=== PATIENT | male | born 1940 | race Caucasian/White ===

== ENCOUNTER 2023-08-01 10:41 | Emergency (ER) | payer OTHER, SELFPAY ==
[2023-08-01 10:45] VITALS: BP 154/70
[2023-08-01 10:55] LABS: Glucose - Point of Care 320 mg/dl (70-99)
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
[2023-08-01] MEDS: NSS 500 IV (11:25)
[2023-08-01 11:35] LABS: % Basophils 0.5 % (0-2); % Eosinophils 0.6 % (0-6); % Lymphocytes 13.7 % (20.5-51.1); % Monocytes 6.6 % (1.7-9.3); % Neutrophils 77.6 % (42.2-75.2); Absolute Basophils 0.1 10^3/uL (0-0.2); Absolute Eosinophils 0.1 10^3/uL (0-0.7); Absolute Immature Granulocytes 0.1 10^3/uL (0-0.05); Absolute Lymphocytes 1.5 10^3/uL (1.2-3.4); Absolute Monocytes 0.7 10^3/uL (0.1-0.6); Absolute Neutrophils 8.8 10^3/uL (1.4-6.5); Hematocrit 45.4 % (39.0-52.0); Hemoglobin 15.6 g/dL (13.0-18.0); Mean Corp Hgb Conc. 34.4 g/dL (33.0-37.0); Mean Corpuscular Hgb 31.3 pg (27.0-31.0); Mean Platelet Volume 9.9 fL (7.4-10.4); Nucleated Red Blood Cells % 0 % (-); Platelet Count 224 10^3/uL (130-400); Red Blood Cell Count 4.99 10^6/uL (4.70-6.10); Red Cell Dist. Width 13.2 % (11.5-14.5); White Blood Cell Count 11.3 10^3/uL (4.8-10.8)
[2023-08-01 11:51] LABS: Blood Urea Nitrogen 27 mg/dl (9-20); Calcium 10.7 mg/dl (8.4-10.2); Carbon Dioxide 22 mmol/L (22-30); Chloride 108 mmol/L (98-107); Glucose 242 mg/dl (70-99); Sodium 136 mmol/L (135-145); eGFR 53.84
[2023-08-01 14:08] LABS: Potassium 4.7 mmol/L (3.5-5.1)
--- NOTE | 2023-08-01 14:36 | PHANOTE ---
Med Rec Note- patient confused and has very very old medication list with him, patient has not ecw and i called the person on file but it went straight to voice mail twice.
[2023-08-01 14:46] VITALS: BP 141/73
[2023-08-01 15:40] VITALS: BP 151/79
== END 2023-08-01 15:40 | disposition home or self-care (01) ==
LOC: EMR 10:41
PROVIDERS: Nurse Practitioner; EMERGENCY PHYSICIAN Emergency Medicine; FAMILY PHYSICIAN Internal Medicine; OTHER PHYSICIAN Internal Medicine Endocrinology, Diabetes & Metabolism
DX: E11.65 Type 2 diabetes mellitus with hyperglycemia (principal); V49.40XA Driver injured in collision with unspecified motor vehicles in traffic accident, initial encounter; F03.90 Unspecified dementia, unspecified severity, without behavioral disturbance, psychotic disturbance, mood disturbance, and anxiety; E86.0 Dehydration
CPT/HCPCS: 99285; 96360; 70450; 71260; 72125; 74177; 80048; 82962; 84132; 85025; 87040; 87205; 93005; Q9967

== ENCOUNTER 2023-08-02 18:38 | Emergency (ER) | payer MEDICARE, BC, SELFPAY ==
[2023-08-02 18:42] VITALS: BP 130/75
[2023-08-02 19:08] LABS: % Basophils 0.4 % (0-2); % Eosinophils 0.4 % (0-6); % Immature Granulocytes 0.4 % (0-0.5); % Lymphocytes 16.8 % (20.5-51.1); Absolute Lymphocytes 1.8 10^3/uL (1.2-3.4); Absolute Neutrophils 7.7 10^3/uL (1.4-6.5); Hematocrit 45.5 % (39.0-52.0); Hemoglobin 15.7 g/dL (13.0-18.0); Mean Corp Hgb Conc. 34.5 g/dL (33.0-37.0); Mean Corpuscular Hgb 31.2 pg (27.0-31.0); Mean Corpuscular Volume 90.3 fL (80.0-94.0); Nucleated Red Blood Cells % 0 % (-); Platelet Count 255 10^3/uL (130-400); Red Blood Cell Count 5.04 10^6/uL (4.70-6.10); Red Cell Dist. Width 13.6 % (11.5-14.5); White Blood Cell Count 10.5 10^3/uL (4.8-10.8)
[2023-08-02 19:20] LABS: Lactic Acid 1.8 mmol/L (0.7-2.0)
[2023-08-02 19:23] LABS: ALT (SGPT) 21 U/L (0-50); AST (SGOT) 44 U/L (17-59); Alkaline Phosphatase 132 U/L (38-126); Blood Urea Nitrogen 38 mg/dl (9-20); Calcium 11.2 mg/dl (8.4-10.2); Carbon Dioxide 25 mmol/L (22-30); Chloride 102 mmol/L (98-107); Glucose 253 mg/dl (70-99); Potassium 4.7 mmol/L (3.5-5.1); Sodium 137 mmol/L (135-145); Total Bilirubin 1.1 mg/dl (0.2-1.3); Total Protein 7.8 g/dl (6.3-8.2); eGFR 41.96
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
[2023-08-02 22:38] VITALS: BP 122/69
[2023-08-02 22:45] LABS: Urine Albumin 1+ (Neg - Trace); Urine Bilirubin Negative (Negative); Urine Character Clear (Clear); Urine Color Yellow; Urine Glucose 3+ (Negative); Urine Ketone Negative (Negative); Urine Leukocyte Trace (Negative); Urine Nitrite Negative (Negative); Urine Occult Blood Trace (Negative); Urine Specific Gravity 1.015 (<1.030); Urine Urobilinogen Negative (Neg - 1+)
[2023-08-02 22:53] LABS: Urine Squamous Cell 0-2 /LPF (Few)
[2023-08-02 22:59] LABS: Urine Bacteria Moderate (Negative); Urine White Cell 30-40 /HPF (0-5)
[2023-08-02] MEDS: BACTRIM DS 800 MG/160 MG 1 TABLET PO (23:18)
== END 2023-08-02 23:26 | disposition home or self-care (01) ==
LOC: EMR 18:38
PROVIDERS: Emergency Medicine; EMERGENCY PHYSICIAN Student in an Organized Health Care Education/Training Program; FAMILY PHYSICIAN Internal Medicine
DX: N39.0 Urinary tract infection, site not specified (principal)
CPT/HCPCS: 99283; 80053; 81003; 81015; 83605; 85025; 87040; 87086

== ENCOUNTER 2024-09-16 10:13 | Inpatient (IN) | payer MEDICARE, BC, SELFPAY ==
[2024-09-14 20:49] VITALS: BP 153/93; BMI 28.2
[2024-09-14 20:51] VITALS: BP 153/93
[2024-09-14] MEDS: TYLENOL 1000 MG PO (21:47)
[2024-09-14 21:49] VITALS: BP 119/107
--- NOTE | 2024-09-14 21:49 | ED.GENMED ---
History of Present Illness
General
Chief Complaint: Fever
Time Seen by Provider: 09/14/24 21:43
History of Present Illness
History of Present Illness:
Patient is a 84-year-old male with history of dementia, diabetes, hyperlipidemia presenting to the emergency department with fever and weakness. Patient's noticed that patient was unable to get out of bed by himself which she is usually able
to do. Otherwise patient does have a history of dementia so history is limited. Per medics the call was for weakness and a fever. He is at his mental status baseline. His Accu-Chek was normal. They did start fluids. They did notice a foul
smell to his urine.
Past History
Past History
ED Past Medical History: Other (Dementia)
Phy Exam
Physical Exam
Physical Exam:
GENERAL: in no acute distress,
HEENT: normocephalic, extraocular movements intact, moist oral mucosa
NECK: normal inspection
RESPIRATORY: no respiratory distress, clear to auscultation bilaterally
CARDIOVASCULAR: regular rate and rhythm
ABDOMEN/: soft, non-distended, non-tender to palpation, no rebound or guarding
EXTREMITIES: non-tender, no edema/swelling
NEUROLOGIC: awake and alert, oriented x 1, moves all extremities, no gross motor or sensory deficit
SKIN: warm
Sepsis
Sepsis Screening
Sepsis Assessment: Sepsis Ruled Out
Sepsis Screen
Sepsis Screen: Sepsis Ruled Out
Date: 09/14/24
Time: 23:04
Course
Orders/Labs/Results
Orders:
Orders
09/14/24 20:47
EKG [Electrocardiogram (*1)] Urgent
Reason for Study: Fatigue / Weakness
EKG- Treatment ONCE
09/14/24 20:58
Cardiac Monitoring- Treatment ONCE
09/14/24 21:34
Complete Blood Count/With Diff Urgent
Comprehensive Metabolic Panel Urgent
Lactic Acid Q4H
Comment: ON ICE, CANCEL 2ND ORDER IF FIRST LACTIC ACID LEVEL <2
Blood Culture Q20M
ANTOINE Source: Blood/Venous
Specimen Description:
Comment: Urgent from separate sites. If patient screens positive for possible sepsis
Blood Culture Q20M
ANTOINE Source: Blood/Venous
Specimen Description:
Comment: Urgent from separate sites. If patient screens positive for possible sepsis
09/14/24 21:35
CR Chest - 2 Views Urgent
Comment:
Reason For Exam: fever
09/14/24 21:37
Urinalysis Reflex To Culture Urgent
Date Specimen was Collected: 09/14/24
Time Specimen was Collected: 21:36
Urine Microscopic Reflex Cult Urgent
09/14/24 21:43
Acetaminophen [Tylenol] 1,000 mg PO NOW STA
09/14/24 21:50
0.9% Sodium Chloride 1000 ml [Nss] 1,000 ml IV BOLUS
09/14/24 22:18
COVID-19 Antigen Urgent
Source: Nasal Swab
Influenza A+B Rapid Molecular Urgent
ANTOINE Source: Nasal Swab
Specimen Description:
09/14/24 22:21
CT Abd/pelvis W Iv Cont Urgent
Comment:
Reason For Exam: hematuria, febrile
Abnormal Lab Results
09/14/24 09/14/24 09/14/24
21:34 21:37 22:18
MCH 31.3 H pg
(27.0-31.0)
Absolute Neuts (auto) 7.5 H 10^3/uL
(1.4-6.5)
Absolute Lymphs (auto) 0.7 L 10^3/uL
(1.2-3.4)
Absolute Monos (auto) 1.0 H 10^3/uL
(0.1-0.6)
Neutrophils % 81.0 H %
(42.2-75.2)
Lymphocytes % 7.4 L %
(20.5-51.1)
Monocytes % 10.8 H %
(1.7-9.3)
BUN 26 H mg/dl
(9-20)
Glucose 226 H mg/dl
(70-99)
Calcium 11.1 H mg/dl
(8.4-10.2)
Urine Ketones 2+ A
(Negative)
Ur Occult Blood Reflex 3+ A
(Negative)
Urine RBC 3-6 A /HPF
(0-2)
Urine Glucose 4+ A
(Negative)
Urine Albumin (Reflex) 2+ A
(Neg - Trace)
SARS-CoV-2 Antigen Positive A
(Negative)
09/14/24 21:34
09/14/24 21:34
Vital Signs
Initial and Last Documented VS:
Initial Vital Signs
Temp Pulse Resp BP Pulse Ox
101.2 F H 80 21 153/93 98
09/14/24 20:49 09/14/24 20:49 09/14/24 20:49 09/14/24 20:49 09/14/24 20:49
Last Documented Vital Signs
Temp Pulse Resp BP Pulse Ox
101.2 F H 76 16 135/65 98
09/14/24 20:49 09/14/24 22:15 09/14/24 22:15 09/14/24 22:00 09/14/24 21:49
MDM/Problems Addressed
Differential Diagnosis Includes:
Patient is a 84-year-old male with history of dementia, hypertension, diabetes presenting to the emergency department with fever and generalized weakness as he was unable to get out of bed by himself. On arrival patient is febrile here. Exam is
otherwise reassuring. He is at his mental status baseline. Concern for UTI versus viral illness. Will check blood work EKG respiratory swabs urine sample and obtain blood cultures. Will give fluids. Patient will need admission
*Critical Care Note
Total Time (30-74mins, 75-104mins- exclusive of procedures): Not Applicable
Update Note
Update Note:
Urine with hematuria but no signs of infection. Will obtain CT scan for for kidney stone or intra-abdominal pathology since history is limited.
Chest x-ray per my interpretation with no obvious opacity. COVID is positive. This could explain the fever. However given patient's weakness and that he is from home patient will need admission for PT eval. Discussed with hospitalist who
accepted patient to their service CT scan read is pending at the time of admission.
ED Attending Note
-
Portions of this chart may have been created with voice recognition software.� Occasional wrong word or��sound alike� substitutions may have occurred due to the inherent limitations of voice recognition software.
Discharge Plan
Departure
Patient Disposition: Admit
Date of Disposition: 09/14/24
Time of Disposition: 22:59
Presentation/result/management discussed w/ accepting MD/DO: Hospitalist
Discharge Problem:
COVID-19
Prescriptions:
No Action
atorvastatin [Lipitor] 80 mg Tablet
80 mg PO HS
insulin asp prt-insulin aspart [Novolog Mix 70-30FlexPen U-100] 100 unit/mL (70-30) Insulin Pen
26 unit SC DAILY
Rx Instructions:
before breakfast
Ozempic 1 mg/dose (4 mg/3 mL) Pen Injector
1 mg SC MO
Theragen Tablet
1 tab PO DAILY
Jardiance 25 mg Tablet
25 mg PO DAILY
cyanocobalamin (vitamin B-12) [Vitamin B-12] 1,000 mcg Tablet
1,000 mcg PO DAILY
insulin aspart U-100 [Novolog FlexPen U-100 Insulin] 100 unit/mL (3 mL) Insulin Pen
0 sliding scale dose SC BID@1200,1800
Rx Instructions:
lunch/dinner
insulin glargine [Lantus Solostar U-100 Insulin] 100 unit/mL (3 mL) insulin pen
26 unit SC HS
memantine 10 mg Tablet
10 mg PO BID
Referrals:
Babatunde Martinez MD [Family Provider] -
Interventions
Interventions:
*Risk Screen - Suicide Last Done: 09/14/24 20:49
*General Assessment Last Done: 09/14/24 20:49
*Neglect/Abuse Screening Last Done: 09/14/24 20:49
*ED COVID-19 Vaccine History Last Done: 09/14/24 20:49
Discharge Date and Time
Print Language: PASHTO
[2024-09-14 21:54] LABS: % Basophils 0.3 % (0-2); % Eosinophils 0.1 % (0-6); % Immature Granulocytes 0.4 % (0-0.5); % Lymphocytes 7.4 % (20.5-51.1); % Monocytes 10.8 % (1.7-9.3); Absolute Lymphocytes 0.7 10^3/uL (1.2-3.4); Absolute Neutrophils 7.5 10^3/uL (1.4-6.5); Hematocrit 48.2 % (39.0-52.0); Hemoglobin 16.3 g/dL (13.0-18.0); Mean Corp Hgb Conc. 33.8 g/dL (33.0-37.0); Mean Corpuscular Hgb 31.3 pg (27.0-31.0); Mean Corpuscular Volume 92.5 fL (80.0-94.0); Mean Platelet Volume 10.4 fL (7.4-10.4); Nucleated Red Blood Cells % 0 % (-); Platelet Count 173 10^3/uL (130-400); Red Blood Cell Count 5.21 10^6/uL (4.70-6.10); Red Cell Dist. Width 14.2 % (11.5-14.5); White Blood Cell Count 9.2 10^3/uL (4.8-10.8)
[2024-09-14 21:55] LABS: Urine Albumin 2+ (Neg - Trace); Urine Bilirubin Negative (Negative); Urine Character Clear (Clear); Urine Color Yellow; Urine Glucose 4+ (Negative); Urine Ketone 2+ (Negative); Urine Leukocyte Negative (Negative); Urine Nitrite Negative (Negative); Urine Occult Blood 3+ (Negative); Urine Urobilinogen Negative (Neg - 1+)
[2024-09-14 22:00] VITALS: BP 135/65
[2024-09-14 22:05] LABS: Lactic Acid 1.7 mmol/L (0.7-2.0)
[2024-09-14 22:06] LABS: ALT (SGPT) 19 U/L (0-50); AST (SGOT) 27 U/L (17-59); Alkaline Phosphatase 123 U/L (38-126); Blood Urea Nitrogen 26 mg/dl (9-20); Calcium 11.1 mg/dl (8.4-10.2); Carbon Dioxide 25 mmol/L (22-30); Chloride 104 mmol/L (98-107); Estimated Creatinine Clearance 44 ml/min; Glucose 226 mg/dl (70-99); Potassium 4.5 mmol/L (3.5-5.1); Sodium 139 mmol/L (135-145); Total Protein 7.1 g/dl (6.3-8.2)
[2024-09-14] MEDS: NSS 1000 IV (22:19)
[2024-09-14 22:56] LABS: COVID-19 Antigen Positive (Negative)
[2024-09-14 23:19] VITALS: BP 104/60
[2024-09-15] VITALS (10 sets, daily range): BP systolic 108–168; BP diastolic 45–77
--- NOTE | 2024-09-15 00:47 | HPS.HSE ---
Family Physician
-
Family Physician: Babatunde Martinez
Chief Complaint
-
Weakness
History of Present Illness
Patient is an 84y M with PMH significant for dementia, hypertension and previous renal cancer s/p L nephrectomy who presents to ED for evaluation of weakness. History obtained from significant other given baseline dementia. Patient was very
weak this AM - which is not unusual. He was unable to get OOB and ended up sliding onto the floor. No significant injury or trauma. S.O. was unable to get him up and called 911. EMS noted patient to be febrile and brought him to the ED for
evaluation.
S.O. reports no recent cough, fevers / chills, N/V/D or other specific complaints. She does report that she herself has had some chest congestion / cold symptoms and several of her co-workers have been ill recently.
Patient tests positive for COVID in the ED.
He had the initial 2 vaccinations v SARS-CoV-2 but no boosters since that time.
Medical History
Past Medical History
Past Medical History: Reports Other
Additional Past Medical History:
Renal Cell Carcinoma s/p L Nephrectomy ([facility])
Hypertension
DM-II
Senile Dementia
Past Surgical History: Reports Other
Additional Past Surgical History:
Left Nephrectomy
Social History
Tobacco: Former Smoker
Alcohol: None
Drug: None
Personal: Partner
Family History
Family History: Not pertinent
Allergies / Home Medications
Allergies reflects when Allergies were last updated in [employer].
Home Medications with original date entered in [employer]
Allergy/Medication List:
Allergies
Allergy/AdvReac Type Severity Reaction Status Date / Time
No Known Allergies Allergy Verified 09/14/24 20:48
Home Medications
atorvastatin 80 mg tablet (Lipitor) 80 mg PO HS 08/01/23
empagliflozin 25 mg tablet (Jardiance) 25 mg PO DAILY 08/01/23
insulin aspar prot-insulin aspart 100 unit/mL (70-30) subcutaneous pen (Novolog Mix 70-30FlexPen U-100) 26 unit SC DAILY 08/01/23
semaglutide 1 mg/dose (4 mg/3 mL) subcutaneous pen injector (Ozempic) 1 mg SC MO 08/01/23
therapeutic multivitamin 1 tab PO DAILY 08/01/23
cyanocobalamin (vitamin B-12) 1,000 mcg tablet (Vitamin B-12) 1,000 mcg PO DAILY 08/02/23
insulin aspart U-100 100 unit/mL (3 mL) subcutaneous pen (Novolog FlexPen U-100 Insulin aspart) 0 sliding scale dose SC BID@1200,1800 08/02/23
insulin glargine 100 unit/mL (3 mL) subcutaneous pen (Lantus Solostar U-100 Insulin) 26 unit SC HS 08/02/23
memantine 10 mg tablet 10 mg PO BID 09/14/24
Review of Systems
-
History Source: Patient and Family
A 12 point ROS was completed and negative except as noted: Yes
Constitutional: Reports Fatigue; Denies Fever or Chills
Respiratory: Denies Cough or Trouble Breathing
Cardiac: Denies Chest Pain or Palpitations
Abdomen/GI: Denies Abdominal Pain, Nausea, Vomiting or Diarrhea
: Denies Dysuria or Flank Pain
Neurological: Reports Weakness; Denies Dizzy or Headache
Psych: Reports Dementia; Denies Depression or Anxiety
Physical Exam
Vital Signs
Vital Signs
Temp Pulse Resp BP Pulse Ox
101.2 F H 74 18 104/60 97
09/14/24 20:49 09/14/24 23:45 09/14/24 23:45 09/14/24 23:19 09/14/24 23:19
Physical Exam
General: Other (Pleasantly demented 84y M in no distress.)
HEENT: Moist mucous membranes
Respiratory: Other (few bibasilar rales.)
Cardiac: S1/S2 and Regular Rhythm; No Murmur
GI: Soft, Non Tender, Non Distended and Normal Bowel Sounds
Genito-urinary: No costovertebral tender
Musculoskeletal: No Clubbing, No Cyanosis and No Edema
Neuro: Awake, Alert and Nonfocal/grossly intact; No Oriented
Laboratory Results
-
09/14/24 21:34
09/14/24 21:34
Laboratory Results
Lactic Acid 1.7 mmol/L (0.7-2.0) 09/14/24 21:34
Total Bilirubin 1.0 mg/dl (0.2-1.3) 09/14/24:34
AST 27 U/L (17-59) 09/14/24:34
ALT 19 U/L (0-50) 09/14/24:34
Alkaline Phosphatase 123 U/L (38-126) 09/14/24:34
Impression/Plan
-
A/P: Patient is an 84y M with PMH significant for HTN, DM-II and dementia who presents to ED for evaluation of weakness at home.
COVID-19 Infection
Weakness secondary to the above
- Admit for further evaluation and treatment.
- Febrile to 101.2. Not hypoxemic. No cough. CXR unremarkable.
- Follow proper precautions.
- Supportive care.
- Monitor for any new / worsening symptoms.
- Hold on Paxlovid for now after discussion with significant other.
- PT evaluation.
Right Hydronephrosis
Right Pelvic Fluid Collection
- Unclear chronicity, etiology, etc.
- No recent surgeries, procedures, etc per S.O.
- Renal function appears to be at baseline.
- Patient is non-toxic appearing at present.
- Urology consulted. NPO for possible OR / cysto in AM for further evaluation.
- Cover empirically with IV ceftriaxone for now.
DM-II
- Stable. Continue basal : bolus insulin regimen.
- SSI as needed.
- Update A1C.
Senile Dementia
- No agitation / anxiety / etc.
- Continue Namenda.
History of Renal Cell Cancer s/p L Nephrectomy
- s/p treatment at [facility].
- Not on any active therapy.
DVT Prophylaxis: SCDs
Code Status: DNR
--- NOTE | 2024-09-15 01:38 | CON.MD ---
Consultation - Medical
-
see dictated note
pt admitted with weakness/fever- COVID +
receives all care thru outside system
reported hx of left nephrectomy- also appears to have had prostatectomy and prob other intra-abd surgery based on large midline scar and CT
due to microhematuria- ct obtained
? mild right hydro- some distension of ureter
large pelvic fluid collection- appears to be old seroma or ureterocele
also- very distended bladder
pt with fever- but negative ua/nl wbc and no flank pain- cr 1.3
exam
benign abd
impacted with stool- no prostate or mass
pvr> 500cc- kuo placed- 800cc of clear urine
plan
at this point do not suspect fever due to uti/obstruction but will follow
I think most likely cause of mild right hydro is urinary retention- kuo placed- will check KUB to see if dye drained and tract cr levels
for any clinical decline- would consider stent
pt with dementia- reviewed with his partner
will follow
[2024-09-15] MEDS: ROCEPHIN 1000 MG IV (02:41)
[2024-09-15] MEDS: STERILE WATER FOR INJECTION 10 ML IV (02:42)
[2024-09-15] MEDS: NSS 1000 IV ×3 (02:51→20:54)
--- NOTE | 2024-09-15 03:18 | EDRN ---
pt transported to x ray by rn. returned to room. plan of care reviewed with pt and who verb understanding. will cont to obs. iv fluids infusing.
[2024-09-15 05:47] LABS: Hematocrit 43.4 % (39.0-52.0); Hemoglobin 14.5 g/dL (13.0-18.0); Mean Corp Hgb Conc. 33.4 g/dL (33.0-37.0); Mean Corpuscular Hgb 30.8 pg (27.0-31.0); Mean Corpuscular Volume 92.1 fL (80.0-94.0); Mean Platelet Volume 9.8 fL (7.4-10.4); Platelet Count 155 10^3/uL (130-400); Red Blood Cell Count 4.71 10^6/uL (4.70-6.10); Red Cell Dist. Width 14.2 % (11.5-14.5); White Blood Cell Count 6.8 10^3/uL (4.8-10.8)
[2024-09-15 05:51] LABS: INR 1.16; PT 15.1 Sec (11.4-14.6)
[2024-09-15 06:06] LABS: Blood Urea Nitrogen 27 mg/dl (9-20); Calcium 10.4 mg/dl (8.4-10.2); Carbon Dioxide 22 mmol/L (22-30); Chloride 110 mmol/L (98-107); Estimated Creatinine Clearance 48 ml/min; Glucose 159 mg/dl (70-99); Potassium 4.3 mmol/L (3.5-5.1); Sodium 141 mmol/L (135-145); eGFR 58.89
[2024-09-15 08:00] LABS: Glucose - Point of Care 130 mg/dl (70-99)
[2024-09-15] MEDS: NOVOLOG FLEXPEN-MODERATE RESISTANCE SC ×2 (08:12→14:01)
--- NOTE | 2024-09-15 08:47 | W.PN.URO.CBU ---
Today's Communication / Plan
-
continue kuo and supportive medical care
Assessment / Plan
-
COVID
hx of left nephrectomy
presume hx of radical prostatectomy and right ureteral re-implant
right hydro
i have now been able to review old films- i believe pt has had a radical prostatectomy and right ureteral re-implant and that the fluid mass/collection seen on the CT is acutally a distended ureter from reflux/retention
pt is stable
plan to continue kuo/add flomax/bowel regimen
repeat CT tomorrow after period of kuo decompression- if any evid of ongoing obstruction or ? mass- may need cysto and ureteroscopy
will follow
discussed with med team
Diagnosis
-
Date of Service: September 15, 2024
-
Patient Diagnosis:
hx of left nephrectomy
hx of prostatectomy with likely right ureteral re-implant
urinary retention
COVID
Subjective
-
pt tired
no complaints of pain
kuo in- urine clear- good UO
cr stable at 1.2
KUB- right system appears to be draining and non-obstructed
Objective
-
Vital Signs
Temp Pulse Resp BP Pulse Ox
97 F 74 20 126/49 97
09/15/24 08:41 09/15/24 08:41 09/15/24 08:41 09/15/24 08:41 09/15/24 08:41
Laboratory Results
09/15/24 05:28
09/15/24 05:28
Review of Systems
-
Unable to obtain full review of systems at this time due to: Dementia (no specific complaints)
Physical Exam
-
General - no acute distress
Abdomen - soft, non-tender, large midline incision
Genitalia - normal- kuo in place
Rectal - impacted- no prostate
[2024-09-15 10:32] LABS: Glycohemoglobin (HgbA1c) 9.1 % (4.0-5.6)
[2024-09-15] MEDS: MIRALAX 17 GRAMS PO (10:43)
[2024-09-15] MEDS: FLOMAX 0.4 MG PO (10:44)
[2024-09-15] MEDS: DULCOLAX 10 MG PO (10:44)
[2024-09-15] MEDS: FARXIGA 10 MG PO (10:44)
--- NOTE | 2024-09-15 12:09 | W.PN.UPDATE ---
Update Note
Progress Note Update
Seen and examined independent of overnight physician.
Currently resting in bed. Patient was febrile.
Block catheter urinary output noted
General: Other (Pleasantly demented 84y M in no distress.)
HEENT: Moist mucous membranes
Respiratory: Other (few bibasilar rales.)
Cardiac: S1/S2 and Regular Rhythm; No Murmur
GI: Soft, Non Tender, Non Distended and Normal Bowel Sounds
Genito-urinary: No costovertebral tender
Musculoskeletal: No Clubbing, No Cyanosis and No Edema
Neuro: Awake, Alert and Nonfocal/grossly intact; No Oriented
A/P: Patient is an 84y M with PMH significant for HTN, DM-II and dementia who presents to ED for evaluation of weakness at home.
Right Hydronephrosis
Right Pelvic Fluid Collection
Presume History of prostatectomy
left nephrectomy
- Unclear chronicity, etiology, etc.
- Renal function appears to be at baseline.
- Patient is non-toxic appearing at present.
- Urology consulted.
- Status post Block catheter placement on admission with significant urinary drainage. Plan will be to continue Block on discharge with outpatient follow-up. Flomax added
- Cover empirically with IV ceftriaxone for now.
- Monitor renal function closely. Possible OR tomorrow.
Constipation
-started bowel regimen. If no results, trial of Enema
COVID-19 Infection
Weakness secondary to the above
- Febrile to 101.2. Not hypoxemic. No cough. CXR unremarkable.
- Follow proper precautions.
- Supportive care.
- Monitor for any new / worsening symptoms.
- Hold on Paxlovid for now after discussion with significant other.
- PT evaluation.
DM-II
- Stable. Continue basal : bolus insulin regimen.
- SSI as needed.
- Update A1C at 9.1.
Senile Dementia
- No agitation / anxiety / etc.
- Continue Namenda.
History of Renal Cell Cancer s/p L Nephrectomy
- s/p treatment at [facility].
- Not on any active therapy.
DVT Prophylaxis: SCDs
Code Status: DNR
Discussed with urology
[2024-09-15] MEDS: SENOKOT-S 1 TABLET PO ×2 (12:40→22:38)
[2024-09-15] MEDS: THERAGRAN 1 TABLET PO (12:40)
[2024-09-15] MEDS: NAMENDA 10 MG PO ×2 (12:41→22:38)
[2024-09-15 12:45] LABS: Glucose - Point of Care 178 mg/dl (70-99)
--- NOTE | 2024-09-15 14:14 | CM ---
Patient + Covid-19; initial assessment completed via phone with significant other, Ella Taylor
Pharmacy verified: [facility] @ [address] [place] [address]
Lives with significant other, Ella; one floor single home; 2 steps to enter; bath has large stall shower
PLOF: per Ella, patient was independent; able to bathe, dress, and feed self; forgetful and needs reminder to shower; toilets self; incontinent during the night
no longer drives
NO history of SNF or Home Health utilization history
Significant other will transport home
Explained to Ella that PT recommends home health when stable for discharge; she is agreeable; agency options identified; [facility] is preference; referral sent to [facility] liaison
Plan: Discharge to home when medically stable with home health services
[2024-09-15 16:49] LABS: Glucose - Point of Care 161 mg/dl (70-99)
[2024-09-15] MEDS: NOVOLOG FLEXPEN-MODERATE RESISTANCE 1 UNITS SC (16:59)
[2024-09-15 17:47] LABS: Glucose - Point of Care 167 mg/dl (70-99)
[2024-09-15 20:53] LABS: Glucose - Point of Care 244 mg/dl (70-99)
[2024-09-15] MEDS: LANTUS 0.26 UNITS SC (22:38)
[2024-09-15] MEDS: LIPITOR 80 MG PO (22:38)
[2024-09-16] MEDS: STERILE WATER FOR INJECTION 10 ML IV (02:21)
[2024-09-16] MEDS: ROCEPHIN 1000 MG IV (02:22)
[2024-09-16] MEDS: NSS 1000 IV (06:30)
--- NOTE | 2024-09-16 07:44 | W.PN.URO.CBU ---
Addendum entered and electronically signed by Kamran Figueroa Jr., MD 09/16/24 12:42:
repeat ct shows that fluid 'mass' was re-implanted ureter- decompressed and no hydro with kuo
will plan to continue kuo and flomax and plan outpt TOV when pt recovered from COVID
Original Note:
Today's Communication / Plan
-
continue kuo
repeat CT
Assessment / Plan
-
COVID
hx of left nephrectomy
presume hx of radical prostatectomy and right ureteral re-implant
right hydro
i have now been able to review old films- i believe pt has had a radical prostatectomy and right ureteral re-implant and that the fluid mass/collection seen on the CT is acutally a distended ureter from reflux/retention
pt is stable
plan to continue kuo/add flomax/bowel regimen
repeat CT today- dispo depending on results
Diagnosis
-
Date of Service: September 16, 2024
-
Patient Diagnosis:
hx of left nephrectomy
hx of prostatectomy with likely right ureteral re-implant
urinary retention
COVID
Subjective
-
pt offers no complaints
kuo in place- urine clear
afebrile
Objective
-
Vital Signs
Temp Pulse Resp BP Pulse Ox
98.2 F 77 16 139/70 98
09/15/24 23:41 09/15/24 23:41 09/15/24 23:41 09/15/24 23:41 09/15/24 23:41
Intake and Output
09/15/24 09/16/24 09/17/24
06:59 06:59 06:59
Intake Total 2039
Output Total 2049 1050 / 1050
Balance -10 / -1060 -1050 / -1050
Intake:
Oral fluids 240 / 240
IV fluids (Total) 1800 / 1800
Output:
Urine, Kuo 2049
Other:
Number of unmeasured liquid
stools
Rectum 1
Review of Systems
-
Unable to obtain full review of systems at this time due to: Dementia (no specific complaints)
Physical Exam
-
General - no acute distress
Abdomen - soft, non-tender, large midline scar
Genitalia - kuo
[2024-09-16 07:46] VITALS: BP 104/49
[2024-09-16 07:58] LABS: % Basophils 0.5 % (0-2); % Eosinophils 0.7 % (0-6); % Immature Granulocytes 0.3 % (0-0.5); % Lymphocytes 27.1 % (20.5-51.1); % Neutrophils 54.4 % (42.2-75.2); Absolute Lymphocytes 1.6 10^3/uL (1.2-3.4); Absolute Neutrophils 3.2 10^3/uL (1.4-6.5); Hemoglobin 14.2 g/dL (13.0-18.0); Mean Corpuscular Hgb 30.7 pg (27.0-31.0); Mean Corpuscular Volume 92.9 fL (80.0-94.0); Mean Platelet Volume 10.5 fL (7.4-10.4); Nucleated Red Blood Cells % 0 % (-); Platelet Count 154 10^3/uL (130-400); Red Blood Cell Count 4.63 10^6/uL (4.70-6.10); Red Cell Dist. Width 14.3 % (11.5-14.5); White Blood Cell Count 5.9 10^3/uL (4.8-10.8)
[2024-09-16 08:14] LABS: Blood Urea Nitrogen 25 mg/dl (9-20); Calcium 10.3 mg/dl (8.4-10.2); Carbon Dioxide 22 mmol/L (22-30); Chloride 110 mmol/L (98-107); Estimated Creatinine Clearance 48 ml/min; Glucose 129 mg/dl (70-99); Sodium 140 mmol/L (135-145); eGFR 58.89
[2024-09-16 08:32] LABS: Glucose - Point of Care 114 mg/dl (70-99)
[2024-09-16] MEDS: NOVOLOG FLEXPEN-MODERATE RESISTANCE SC (08:36)
--- NOTE | 2024-09-16 10:04 | CM ---
Addendum entered by Jihan Hernandez 09/16/24 14:22:
CM reviewed chart, met with patient significant other, Ella, in [facility]. CM discussed plan for discharge today, home with [facility]. Ella requesting referral to [facility] as patient is known to agency, will send referral and update
VN. Call to [facility] to update on discharge today home with kuo. IMM reviewed verbally, agreeable, placed in chart, Ella provided with copy. Ella asking if Physician can update her, TT to Hospitalist. Medical records form
provided to Ella. Ella confirms she will transport patient home.
Plan; home with [facility], significant other to transport home
[facility]
Original Note:
CM reviewed chart, patient Covid positive. Consult received for [facility] for [facility]- shared with [facility] liaison. Call to patients significant other to discuss VN upon discharge, review [facility] form, left VM. Repeat CT today. CM will continue to follow for
all discharge planning needs.
Plan; home with [facility]
--- NOTE | 2024-09-16 10:44 | VNURNOTE ---
Sheet Roller Operator called spouse to discuss [facility]. No answer, left voicemail. Referral placed in [facility].
--- NOTE | 2024-09-16 11:34 | W.PN.HOSP.TC ---
Addendum entered and electronically signed by Himanshu Aragon MD 09/16/24 14:20:
Dw with S/O Reyna at bedside. Understands to f/u with UROLOGIST (His primary at [facility] or w/Dr. Figueroa) for TOV.
Addendum entered and electronically signed by Himanshu Aragon MD 09/16/24 13:23:
D/W WITH Dr. Figueroa-no plan for OR. Cont w/ kuo. flomax. OP f/u for TOV
More than 30 minutes spent in discharge including
Final examination of the patient
Summarizing hospital stay
Instructions for continuing care to all relevant caregivers
Preparation of discharge records, prescriptions, and referral forms
Total time spent (in minutes): 50
Original Note:
Today's Communication/Plan
-
await urology recs
?OR tomm
IV abx for now
Assessment / Plan
Assessment / Plan
General: Other (Pleasantly demented 84y M in no distress.)
HEENT: Moist mucous membranes
Respiratory: dec bs
Cardiac: S1/S2 and Regular Rhythm; No Murmur
GI: Soft, Non Tender, Non Distended and Normal Bowel Sounds
Genito-urinary: No costovertebral tender
Musculoskeletal: No Clubbing, No Cyanosis and No Edema
Neuro: Awake, Alert and Nonfocal/grossly intact; No Oriented
A/P: Patient is an 84y M with PMH significant for HTN, DM-II and dementia who presents to ED for evaluation of weakness at home.
Right Hydronephrosis
Right Pelvic Fluid Collection
Presume History of prostatectomy
left nephrectomy
- Unclear chronicity, etiology, etc.
- Renal function appears to be at baseline.
- Patient is non-toxic appearing at present.
- Urology consulted.
- Status post Kuo catheter placement on admission with significant urinary drainage. Plan will be to continue Uko on discharge with outpatient follow-up. Flomax added
- Cover empirically with IV ceftriaxone for now.
- Monitor renal function closely
- Repeat CT Postoperative changes of left nephrectomy and prostatectomy. Again seen is a 2.4 cm hypodensity along the right pelvic sidewall which is favored to represent a focally distended distal right ureter. Further evaluation with cystoscopy
may be considered.
Constipation
-started bowel regimen. moving bowels.
COVID-19 Infection
Weakness secondary to the above
- Febrile to 101.2. Not hypoxemic. No cough. CXR unremarkable.
- Follow proper precautions.
- Supportive care.
- Monitor for any new / worsening symptoms.
- Hold on Paxlovid for now after discussion with significant other.
- PT evaluation.
DM-II
- Stable. Continue basal : bolus insulin regimen.
- SSI as needed.
- Update A1C at 9.1. POC 114
Senile Dementia
- No agitation / anxiety / etc.
- Continue Namenda.
History of Renal Cell Cancer s/p L Nephrectomy
- s/p treatment at [facility].
- Not on any active therapy.
Mild hypercalcemia
-downtrending
DVT Prophylaxis: SCDs
Code Status: DNR
PT-Home VN
Anticipated Discharge: Within 24 hours
Subjective/Interval History
-
Date of Service: September 16, 2024
denies any flank pain
on room air
Objective Data
-
Labs:
Laboratory Results
09/16/24
06:44
WBC 5.9
Hgb 14.2
Hct 43.0
Plt Count 154
Sodium 140
Potassium 4.0
Chloride 110 H
Carbon Dioxide 22
BUN 25 H
Creatinine 1.2
Glucose 129 H
Calcium 10.3 H
Vital Signs:
Vital Signs
Temp Pulse Resp BP Pulse Ox
97.7 F 60 18 104/49 98
09/16/24 07:46 09/16/24 07:46 09/16/24 07:46 09/16/24 07:46 09/16/24 07:46
I&O
09/15/24 09/16/24 09/17/24
06:59 06:59 06:59
Intake Total 2039
Output Total 2049 1050 / 1050
Balance -10 / -1060 -1050 / -1050
[2024-09-16] MEDS: FARXIGA 10 MG PO (11:36)
[2024-09-16] MEDS: SENOKOT-S 1 TABLET PO (11:37)
[2024-09-16] MEDS: FLOMAX 0.4 MG PO (11:37)
[2024-09-16] MEDS: MIRALAX 17 GRAMS PO (11:37)
[2024-09-16] MEDS: NAMENDA 10 MG PO (11:37)
[2024-09-16] MEDS: VITAMIN B-12 1000 MCG PO (11:38)
[2024-09-16] MEDS: THERAGRAN 1 TABLET PO (11:38)
[2024-09-16 11:44] LABS: Glucose - Point of Care 219 mg/dl (70-99)
[2024-09-16] MEDS: NOVOLOG FLEXPEN-MODERATE RESISTANCE 3 UNITS SC (11:45)
--- NOTE | 2024-09-16 13:24 | W.DCSUMMARY ---
Discharge Summary
Discharge Data
Date of Admission: 09/16/24
Date of Discharge: 09/16/24
-
Pending Results: No
Hospital Course
84 female past medical history of presumed history of prostatectomy, left nephrectomy, diabetes mellitus, dementia, history of renal cancer who is presenting for evaluation with weakness at home. Patient was found to be COVID-positive. Patient was
asymptomatic. Stable on room air. CT abdomen pelvis with mild sided hydronephrosis. Patient was evaluated by urology and underwent Kuo catheter placement with significant urinary output. Patient also with constipation was started on bowel
regimen. Repeat CT was performed and per urology ct shows decompressed ureter with cath/ empty bladder and thus no plan for OR. Patient will be continued on Kuo catheter on discharge and will need to follow-up with urologist as outpatient for
voiding trial. Discussed with significant other at bedside. Discharge home with VN.
Discharge Plan
-
Patient Disposition: Home with Home Care
Discharge Diagnosis/Procedures: Urinary retention s/p kuo catheter placement
Weakness due to COVID
Condition: Fair
Diet: As tolerated and Diabetic, Carb Controlled
Activity: As tolerated
Driving Restrictions: Not until seen by your Dr
Instructions: How to Care for Your Kuo Catheter, Male
Referrals:
Babatunde Martinez MD [Family Provider] - in less than 1 week
Kamran Figueroa Jr., MD [Active] - in one to two weeks (CALL OFFICE TO MAKE APPOINTMENT FOR Kuo management)
Prescriptions:
New
tamsulosin 0.4 mg Capsule
0.4 mg PO DAILY 30 Days Qty: 30 0RF
Continued
atorvastatin [Lipitor] 80 mg Tablet
80 mg PO HS
insulin asp prt-insulin aspart [Novolog Mix 70-30FlexPen U-100] 100 unit/mL (70-30) Insulin Pen
26 unit SC DAILY
Rx Instructions:
before breakfast
Ozempic 1 mg/dose (4 mg/3 mL) Pen Injector
1 mg SC MO
therapeutic multivitamin Tablet
1 tab PO DAILY
Jardiance 25 mg Tablet
25 mg PO DAILY
cyanocobalamin (vitamin B-12) [Vitamin B-12] 1,000 mcg Tablet
1,000 mcg PO DAILY
insulin aspart U-100 [Novolog FlexPen U-100 Insulin] 100 unit/mL (3 mL) Insulin Pen
0 sliding scale dose SC BID@1200,1800
Rx Instructions:
lunch/dinner
insulin glargine [Lantus Solostar U-100 Insulin] 100 unit/mL (3 mL) insulin pen
26 unit SC HS
memantine 10 mg Tablet
10 mg PO BID
Discharge Orders:
Discharge Patient (As Directed); Ordered 09/16/24
Ordered By: Himanshu Aragon
Discharge Date and Time
Print Language: KHMER
[2024-09-16 15:11] VITALS: BP 162/87
== END 2024-09-16 16:29 | disposition home health service (06) | DRG 693 ==
LOC: 4 WEST ACU 10:13
PROVIDERS: ADMITTING PHYSICIAN Hospitalist; ATTENDING PHYSICIAN Hospitalist; CONSULT PHYSICIAN Specialist; EMERGENCY PHYSICIAN Student in an Organized Health Care Education/Training Program; FAMILY PHYSICIAN Internal Medicine
DX: N13.30 Unspecified hydronephrosis (principal); U07.1 COVID-19; Z79.4 Long term (current) use of insulin; Z79.84 Long term (current) use of oral hypoglycemic drugs; E11.9 Type 2 diabetes mellitus without complications; F03.90 Unspecified dementia, unspecified severity, without behavioral disturbance, psychotic disturbance, mood disturbance, and anxiety; Z85.528 Personal history of other malignant neoplasm of kidney; Z90.79 Acquired absence of other genital organ(s); Z85.46 Personal history of malignant neoplasm of prostate; I10 Essential (primary) hypertension; Z87.891 Personal history of nicotine dependence; E78.5 Hyperlipidemia, unspecified; Z66 Do not resuscitate; K56.41 Fecal impaction; N32.89 Other specified disorders of bladder; R31.29 Other microscopic hematuria; Z90.5 Acquired absence of kidney
CPT/HCPCS: 71046; 74018; 74176; 74177; 80048; 80053; 81003; 81015; 82962; 83036; 83605; 85025; 85027; 85610; 85730; 87040; 87502; 87811; 93005; 96360; 97162; 99285; Q9967